=== PATIENT | female | born 1955 | race Caucasian/White ===

== ENCOUNTER 2017-09-18 21:04 | Emergency (ER) | payer BC ==
[~2017-09-18] VITALS: Ht 152.4 cm; Wt 66.7 kg
[~2017-09-18 21:04] MED LIST: GLIP10TA3 PO; LOSA100T6 PO; METF500T4 PO; PIOG45TA20 PO
[2017-09-18 21:08] VITALS: BP 124/77
[2017-09-18] MEDS ORDERED: HYDROcodone/APAP 5/325 TABLET PO ONE (22:00)
[2017-09-18] MEDS ORDERED: ONDANSETRON ODT 4 MG PO ONE (22:00)
[2017-09-18 22:32] LABS: CULTURE INDICATED? YES; MICROSCOPIC AUTO
[2017-09-18] MEDS ORDERED: ONDANSETRON ODT 4 MG ONE (22:38)
[2017-09-18] MEDS ORDERED: HYDROcodone/APAP 5/325 TABLET ONE (22:38)
[2017-09-18] MEDS ORDERED: ATOR20TA9 PO (22:45)
[2017-09-18] MEDS ORDERED: LINA5TAB PO (22:45)
[2017-09-18] MEDS ORDERED: INSULIN PEN (23:14)
== END 2017-09-18 23:15 | disposition home or self-care (01) ==
LOC: ED 23:00
DX: S39.012A Strain of muscle, fascia and tendon of lower back, initial encounter (principal); X58.XXXA Exposure to other specified factors, initial encounter; Y93.89 Activity, other specified; Y92.89 Other specified places as the place of occurrence of the external cause; Y99.8 Other external cause status; M51.16 Intervertebral disc disorders with radiculopathy, lumbar region; N30.00 Acute cystitis without hematuria; I10 Essential (primary) hypertension
CPT/HCPCS: 72110; 81001; 87086; 99285; J7512; Q0162